=== PATIENT | male | born 1965 | race Caucasian/White ===

== ENCOUNTER 2016-10-14 21:15 | Emergency (ER) | payer OTHER ==
[~2016-10-14] VITALS: Ht 157.5 cm; Wt 121.4 kg
[~2016-10-14 21:15] MED LIST: DIAZEPAM5 MG PO; LASIX20 MG PO; NAPROXEN500 M1 PO; VALIUM5 MG PO
[2016-10-14] MEDS ORDERED: FIORICET,ESG1 TABLET PO (23:33)
[2016-10-14 23:42] VITALS: BP 147/80
== END 2016-10-14 23:46 | disposition home or self-care (01) ==
LOC: EME 21:15
DX: S00.01XA Abrasion of scalp, initial encounter (principal); S09.8XXA Other specified injuries of head, initial encounter; W18.31XA Fall on same level due to stepping on an object, initial encounter; Y99.0 Civilian activity done for income or pay
CPT/HCPCS: 70450; 72125; 99281; 99285